=== PATIENT | female | born 1970 | race Caucasian/White ===

== ENCOUNTER → 2020-04-06 | Day surgery (SDC) | payer OTHER ==
--- NOTE | 2020-04-05 09:26 | Pre Op History & Physical ---
DATE OF SURGERY: 04/06/2020. CHIEF COMPLAINT: Right thyromegaly with thyroid nodules on the right side. HISTORY OF PRESENT ILLNESS: This 49-year-old female has a sensation of throat closing over the past few months. The patient denies any dysphagia, odynophagia, or shortness of breath. She has some hoarseness in the morning. The patient has no radiation to the head and neck area. The patient was known to have a history of thyroid problem before. An ultrasound of thyroid that was done showed the patient has thyromegaly with right thyroid enlargement and nodules, 2 of them, one was 1.1 cm and another one was 0.6 cm of centric complex cyst on the right thyroid. The left thyroid was top-normal size on the left lobe. REVIEW OF SYSTEMS: System review showed no recent cardiovascular, respiratory, or GI problem. PAST MEDICAL HISTORY: The patient has a history of hypertension. PAST SURGICAL HISTORY: She has gastric banding. ALLERGIES: SHE HAS NO KNOWN ALLERGY TO MEDICATION. MEDICATIONS: She is on Synthroid and citalopram. SOCIAL HISTORY: Nonsmoker and a social drinker. FAMILY HISTORY: Noncontributory. PHYSICAL EXAMINATION: VITAL SIGNS: Within normal limits. HEENT: Ear exam showed normal tympanic membrane bilaterally. Nasal exam showed hypertrophy of inferior turbinates. Oropharynx and oral cavity show 2+ tonsils bilaterally with Mallampati level II. Nasal endoscopy showed the patient has mobile vocal folds bilaterally with no lesion in the hypopharynx. NECK: Showed thyroid fullness, worse on the right side. No lymph node was palpable. CHEST: Showed good air entry bilaterally. CARDIOVASCULAR: Showed S1 and S2. No murmur noted. ASSESSMENT AND PLAN: Ms. Ulloa has right thyromegaly with nodules in the right thyroid. The patient has a history of compression symptoms. I have discussed with the patient regarding treatment options including repeat ultrasound and needle aspiration of the thyroid nodules. The patient wanted the thyroid compression relief. Suggested treatment is right thyroidectomy, possible total thyroidectomy and other necessary procedure. Complication of procedure includes, but not limited to bleeding, infection, hypothyroidism, hyperthyroidism, hypocalcemia, hypercalcemia, voice change, recurrent laryngeal nerve injury, trouble swallowing, dysphagia, wound breakdown, perforation of the esophagus, pneumomediastinum, mediastinitis, persistent recurrence of the problem. Alternatives will be continued observation, thyroid suppression therapy, needle aspiration of the thyroid nodules. The patient has elected to undergo surgical procedure. MD TRELL Bauman/ER[place] /[id number] cc: Catalina Singh
[~2020-04-06] MED LIST: ACETAMINOPHEN/CODEINE 300MG - 30MG TAB ONE; CITALOPRAM HBR20 MG PO; DEXAMETHASONE SOD PHOS 10 MG/1 ML VIAL ONE; DEXAMETHASONE SOD PHOS INJ 4 MG/ML VIAL ONE; EPHEDRINE SULFATE INJ 50 MG/ML VIAL ONE; FENTANYL CITRATE/PF 100MCG/2 ML INJ ONE; GLYCOPYRROLATE INJ 0.2 MG/ML VIAL ONE; HYDROMORPHONE 1MG/1ML INJ ONE; LEVOTHYROXINE75 MCG PO; LIDOCAINE 1% W/EPINEPHRINE 20 ML VIAL ONE; LIDOCAINE HCL (LTA) 4 ML SOLN ONE; LIDOCAINE HCL 2% JELLY 5 ML TUBE ONE; LIDOCAINE HCL 2% LOCAL INJ 5 ML SDV VIAL INJ ONE; MIDAZOLAM HCL 2 MG/2 ML VIAL ONE; NEOSTIGMINE 1 MG/ML 10ML VIAL ONE; ONDANSETRON HCL INJ 2MG/ML 2ML 2 MG/ML VIAL ONE; PROPOFOL IV EMULSION 10 MG/ML 20 ML VIAL ONE; ROCURONIUM BROMIDE 10 MG/ML 5ML VIAL IV ONE; SEVOFLURANE INHAL SOLN 250 ML PEN BTL ONE
[2020-04-06 12:00] VITALS: BP 110/69
--- NOTE | 2020-04-06 13:34 | Operative Report ---
DATE OF PROCEDURE: 04/06/2020 SURGEON: Johnathan Monique MD CHIEF COMPLAINT: Right thyromegaly. POSTOPERATIVE DIAGNOSIS: Right thyromegaly. OPERATIVE PROCEDURE: Right thyroidectomy with appropriate closure. ANESTHESIA: Anesthesiology group. HISTORY OF PRESENT ILLNESS: This 49-year-old female has a compression in her throat. The patient has history of thyroid problem. She denies any dysphagia, odynophagia, or shortness of breath. She has no hoarseness. On examination, she was noted to have fullness in her thyroid, worse on the right side. An ultrasound OF thyroid showed the patient has right thyromegaly with nodules in the right thyroid. After a detailed discussion with the patient and her , the patient declined needle aspiration and wanted to have right thyroidectomy because of the possible compression of the enlarged thyroid gland. DESCRIPTION OF PROCEDURE: The patient was taken to the operating room, put under general anesthesia, endotracheally intubated. An incision was marked out about two fingerbreadths from the sternal notch. Size of the incision was about 4 cm. The area was injected with 1% Xylocaine with 1:100,000 epinephrine for hemostasis. The area was prepped and draped in sterile fashion. Dissection was carried down to the subplatysmal plane. The superior and inferior flap were elevated. The strap muscle was identified and this was . The strap muscle on the right side was retracted laterally. The superior pole of the thyroid gland was identified and this was dissected from the surrounding soft tissue using the Harmonic scalpel. The superior parathyroid gland was identified and this was not disturbed. The thyroid gland was rotated medially and inferiorly. The thyroid gland was delivered. The thyroid isthmus was transected with the Harmonic scalpel. The inferior pole of the thyroid was dissected from the surrounding soft tissue. The inferior parathyroid gland was identified and not disturbed. The thyroid gland was rotated medially and superiorly. The recurrent laryngeal nerve was identified and this was not disturbed. The thyroid gland was dissected from the Riley ligament and delivered for frozen section. The frozen section returned as Ilene's thyroiditis, lymphoma cannot be ruled out. Closure of the area was undertaken. The area was irrigated with copious amount of normal saline. Any bleeding area was controlled using the bipolar cautery. The tracheoesophageal groove on the right side was irrigated with copious amount of normal saline and re-examined prior to closure. The strap muscle was advanced in the midline and closed on itself using 3-0 Vicryl suture in interrupted fashion. The platysmal flap that was elevated was closed on itself using 3-0 Vicryl suture in an interrupted fashion. The skin incision was closed using 4-0 Monocryl suture in the interrupted fashion. The pressure dressing was applied. The patient tolerated the above procedure well with estimated blood loss about 5-10 mL. She was given 20 mg of Decadron intraoperatively. The patient was able to be transferred to recovery room in stable condition. MD RTELL Bauman/[facility] /[id number]
== END | disposition home or self-care (01) ==
LOC: OR 07:46
PROVIDERS: ATTEND Otolaryngology Otolaryngology/Facial Plastic Surgery
DX: E06.3 Autoimmune thyroiditis (principal); I10 Essential (primary) hypertension; Z98.84 Bariatric surgery status
CPT/HCPCS: 60220; 88307; 88331; J1100 ×2; J1170; J2001 ×2; J2250; J2405; J2704; J2710; J3010

== ENCOUNTER → 2020-06-15 | Day surgery (SDC) | payer OTHER ==
[~2020-06-15] MED LIST changes: -ACETAMINOPHEN/CODEINE 300MG - 30MG TAB ONE; +DEXAMETHASONE PHOS 24 MG/ML 10ML VIAL ONE; -DEXAMETHASONE SOD PHOS 10 MG/1 ML VIAL ONE; -EPHEDRINE SULFATE INJ 50 MG/ML VIAL ONE; -GLYCOPYRROLATE INJ 0.2 MG/ML VIAL ONE; -HYDROMORPHONE 1MG/1ML INJ ONE; +KETOROLAC TROMETHAMINE 30 MG/ML VIAL ONE; -LIDOCAINE 1% W/EPINEPHRINE 20 ML VIAL ONE; -LIDOCAINE HCL (LTA) 4 ML SOLN ONE; -LIDOCAINE HCL 2% JELLY 5 ML TUBE ONE; -NEOSTIGMINE 1 MG/ML 10ML VIAL ONE; +OFLOXACIN 0.3% (OTIC SOL) 5 ML BTL ONE; -ROCURONIUM BROMIDE 10 MG/ML 5ML VIAL IV ONE
[2020-06-15 09:05] VITALS: BP 138/75
== END | disposition home or self-care (01) ==
LOC: OR 06:14
PROVIDERS: ATTEND Otolaryngology Otolaryngology/Facial Plastic Surgery
DX: H91.22 Sudden idiopathic hearing loss, left ear (principal); I10 Essential (primary) hypertension
CPT/HCPCS: 69436; J1100; J1885; J2001; J2250; J2405; J2704; J3010